=== PATIENT | male | born 1960 | race Caucasian/White ===

== ENCOUNTER 2022-11-19 05:55 | Day surgery (SDC) | payer BC ==
[2022-11-18 16:33] VITALS: BP 139/98
[~2022-11-19] VITALS: Ht 195.6 cm; Wt 127.3 kg
[~2022-11-19 05:55] MED LIST: METOPROLOL SUC100 MG PO
[2022-11-19 06:16] VITALS: BP 142/92
[2022-11-19] MEDS ORDERED: FLUCONAZOLE200 MG PO (06:19)
[2022-11-19] MEDS ORDERED: VITAMIN D310 MC4 PO (06:21)
--- NOTE | 2022-11-19 08:46 | NUR ---
PT ALERT, ORIENTED AND SUPPORTED BY HIS NUHA. SHE WILL RETURN AT NE. OR STAFF IN TO TAKE PT-GAVE ENCOURAGEMENT AND BLESSING. WILL FOLLOW
--- NOTE | 2022-11-19 10:57 | NUR ---
11/19/22 Aiyana7 Monisha Azar 1053- PT ARRIVES TO PACU NONAROUSABLE TO STIMULI WITH AN OPA IN PLACE. RESP EVEN AND UNLABORED. OXYGEN SAT LOW TO MID 90'S ON 10L VIA MASK. PT ALSO NEEDING A JAW THRUST TO MAINTAIN A PATENT AIRWAY. 1056- JAW THRUST STOPPED. OPA ABLE TO MAINTAIN PATENT AIRWAY.
[2022-11-19] MEDS ORDERED: ACETAMINOPHEN500 MG PO (11:22)
[2022-11-19] MEDS ORDERED: IBUPROFEN600 MG PO (11:22)
[2022-11-19] MEDS ORDERED: OXYCODON-ACETA1 EAC2 PO (11:22)
[2022-11-19 11:47] VITALS: BP 143/72
--- NOTE | 2022-11-19 11:50 | NUR ---
PT ARRIVES TO UNIT VIA STRETCHER FROM PACU. REPORT RECIEVED FROM NIKO FOSTER. PT REPORTS PAIN 7/10 AT THIS TIME, JELLO AND CRACKERS GIVEN TO ENSURE PT CAN TOLERATE ORAL MEDICATION. PT REPORTS NO NAUSEA, DIZZINESS, N/T, SOB AT THIS TIME. PT EXPERIENCES INCREASED PAIN W/DEEP INHALATION, PILLOW PROVIDED BY PACU NURSE AND EDUCATED ON SPLINTING. UMBILICUS DRESSING IS C/D/I, LFT INGUINAL DRESSING HAS 2 SMALL SPOTS OF SS DRAINAGE AT THIS TIME. PT IS A&O X4 W/ AT BEDSIDE. VSS, PT ON 2L OF O2 VIA NC, PULSE OX IN PLACE SHOWS O2 OF 94% AT THIS TIME. CALL LIGHT WITHIN REACH, PT TOLERATING ICE WATER W/OUT DIFFICULTY SWALLOWING, NO FURTHER NEEDS AT THIS TIME.
--- NOTE | 2022-11-19 12:17 | NUR ---
PT TOLERATING JELLO AND CRACKERS W/OUT DIFFICULTY AND REPORTS NO NAUSEA. PRN PERCOCET GIVEN D/T PAIN REPORT OF 7/10 AND TOLERABLE LEVEL OF 5/10. PULSE OX IN PLACE, TITRATED DOWN TO 1L OF O2, PULSE OX SHOWS 94% AT THIS TIME. CALL LIGHT WITHIN REACH, NO FURTHER NEEDS AT THIS TIME.
[2022-11-19 12:40] VITALS: BP 130/81
--- NOTE | 2022-11-19 12:40 | NUR ---
IN ROOM FOR CHECK ON PAIN AFTER 1 DOSE OF PRN PAIN MED. PT STATES PAIN IS STILL 7/10 AND FEELS TIGHTNESS/PRESSURE AROUND ABDOMEN THAT FEELS LIKE "I HAVE A TIRE AROUND MY WAIST". PT STATES PAIN REMAINS ON LFT INGUINAL SITE. ASSISTED PT TO SITTING AT EDGE OF BED AND STANDING AT BEDSIDE. PT STATES FEELS BETTER ON INCISION SITE BUT PT FEELS SLIGHTLY UNSTEADY, PT BACK TO LAYING POSITION AT THIS TIME. POST MOVEMENT UMBILICAL DRESSING IS C/D/I, W/MINIMAL BRUISING AT SITE AND INGUINAL SITE HAS X2 SMALL SPOTS OF SS DRAINAGE AT THIS TIME.
--- NOTE | 2022-11-19 13:10 | NUR ---
EMERSON GATES IN ROOM AT THIS TIME FOR PT UPDATE. VERBAL ORDERS FOR BINDER GIVEN AT THIS TIME, NOW IN PLACE ON PT ABDOMEN. EMERSON VISUALIZES DRESSING AND DRAINAGE. PT NOW RESTING IN BED AT THIS TIME, 2ND PRN PAIN MED ADMINISTERED TO TITRATE TO MAX DOSE. CALL LIGHT WITHIN REACH, AT BEDSIDE, NO FURTHER NEEDS AT THIS TIME.
[2022-11-19 14:07] VITALS: BP 135/88
--- NOTE | 2022-11-19 14:15 | NUR ---
IN PT ROOM FOR FOLLOW UP ON PAIN. PT REPORTS PAIN HAS DECREASED TO 1/10 AND PT STATES TOLERABLE IS 5/10. PT STATES MUCH IMPROVED PAIN MANAGEMENT WITH ABDOMINAL BINDER AND TITRATION OF PRN PERCOCET TO MAX DOSE OF 2 PILLS. AT THIS TIME PT STANDS AT BEDSIDE AND REPORTS NO DIZZINESS OR INSTABILITY. STANDBY ASSIST TO RESTROOM WHERE PT HAD 300 ML URINE OUTPUT. PT NOW BACK IN ROOM AND REPORTS NO INCREASE OF PAIN WITH AMBULATION, AND SLIGHT INCREASE IN BLEEDING AT DISTAL END OF INGUINAL INCISIONAL DRESSING. DRESSING REMAINS INTACT. UMBILICAL DRESSING IS C/D/I. ART RN IN ROOM FOR VISUALIZATION OF DRESSING POST AMBULATION WELL.
--- NOTE | 2022-11-19 14:25 | NUR ---
IN PT ROOM FOR DISCHARGE EDUCATION. PT AND STATE VERBAL UNDERSTANDING AND HAVE NO FURTHER QUESTIONS OR NEEDS AT THIS TIME. IV SITE DC'ED AND WNL, CATHETER TIP INTACT. ADDITIONAL GAUZE/OPSITE GIVEN TO PT IN CASE OF NEED FOR ADDITIONAL DRESSING AFTER 48 HOUR PERIOD DRESSING REMOVAL FOR COMFORT. THIS RN ESCORTS PT OFF OF UNIT VIA WC. ALL BELONGINGS IN PT POSSESSION. PT INTO 'S PASSENGER VEHICLE AT THIS TIME. PT AND STATE NO FURTHER NEEDS AT THIS TIME.
--- NOTE | 2022-11-20 12:33 | NUR ---
11/20/22: FOLLOW UP TC PLACED TO PT. PT REPORTS SIGNIFICANT AMOUNT OF UMBILICAL SWELLING AND PT ENCGD TO CONTACT MD EMERSON. NO FURTHER CONCERNS AND OTHERWISE DOING WELL
--- NOTE | 2022-11-20 14:01 | OR ---
[facility] [address], [place] [address] Signed DATE OF OPERATION: 11/19/2022 SURGEON: Liliya Norman MD PREOPERATIVE DIAGNOSES: 1. Symptomatic left inguinal hernia. 2. Large umbilical hernia. POSTOPERATIVE DIAGNOSES: 1. Left inguinal hernia indirect with large bladder fat sliding component. 2. Umbilical hernia fascial defect 6 cm. PROCEDURES: 1. Repair of left inguinal hernia with implantation of Prolene mesh underlay technique. 2. Repair of umbilical hernia 6 cm defect with implantation of mesh underlay technique. ANESTHESIA: General, endotracheal, Liliya Espinoza CRNA and local 20 mL of 0.25% Marcaine with epinephrine. INDICATION: This 62-year-old white man has had a lifelong umbilical hernia which has increased in size and with increasing symptoms of late. The fascial defect is between 4 and 6 cm clinically. There is no evidence of incarceration. He additionally has a left groin bulge with discomfort and finding include that of an inguinal hernia there. Both testicles are normal. He has increasing symptoms of the left groin. He is admitted at this time to undergo repair of the umbilical hernia as well as the left inguinal hernia. He understands the risk of bleeding, infection, recurrence and so on. Understanding all this, he wished to proceed. FINDINGS: Left inguinal hernia had a relatively large indirect sac. On the medial aspect was contiguous fat from likely the bladder which was freed. Ultimately excision and ligation of the sac were accomplished after reduction of a sliding component. The floor was attenuated and implantation of mesh in the properitoneal space in an underlay technique was accomplished as well. As regard to the umbilical hernia, the fascial defect was ultimately found to be 6 cm. There was a distinct 2 cm defect cephalad to this, which was made in continuity with the Electronically Signed By: LILIYA NORMAN MD 11/20/22 1401 PATIENT NAME: LINCOLN SIMS OPERATIVE REPORT DATE OF : 58 REPORT #: [id number] PHYSICIAN: LILIYA NORMAN MD PCP: NO PRIMARY CARE PHYSICIAN REPORT IS CONFIDENTIAL AND NOT TO BE RELEASED WITHOUT AUTHORIZATION [facility] [address], [place] [address] Signed original defect. Repair included implantation of a 6 inch x 6 inch piece of Prolene mesh in an underlay technique in the properitoneal space. The overlying fascia was able to be reapproximated as well. DESCRIPTION OF PROCEDURE: The patient was brought to the operating room, and given a general endotracheal anesthetic. Due to two separate spinal fusion operations, a pillow with apparatus was used to optimize intubation, which was accomplished without problem. He did receive preoperative antibiotic Ancef. Sequential compression device stockings were used and heparin subcutaneously administered. The abdomen and groin area were clipped and prepared with a chlorhexidine solution and draped sterilely. Attention was turned to the left inguinal hernia 1st. An incision was made along the line of skin tension cephalad to the left pubic tubercle and dissection was carried through the subcutaneous fat. The patient is rather a large 6 feet 7 inches and is generally large and somewhat obese. Dissection carried through the subcutaneous tissue ultimately encountering the external oblique. This was incised along its fibers revealing the underlying cord. A bulky hernia was noted, indirect in type. The cord was mobilized from the floor with blunt and electrocautery dissection and encircled with a Nixon drain. The hernia sac was dissected free from the cord. It appeared to have soft tissue within it, which was not fully reducible. The hernia sac was freed completely from the cord structures and opened. Within it was a significant amount of fat on the medial wall consistent with sliding hernia. Initially it was thought to come from the colon, but more likely bladder fat actually. This was freed from the hernia sac as much as possible and invaginated into the abdominal cavity. The hernia sac now well defined was secured with running 2-0 silk suture doubly applied and redundant hernia sac amputated and passed for pathology. Examination of the floor showed attenuated fibers of the fascia of transversalis. Allis clamps were applied to the tendon of the transversus abdominis. The floor was incised with electrocautery and the properitoneal fat bluntly. Good visualization of the inferior epigastric vein and artery was noted. A segment of Prolene mesh was cut to an elliptical configuration and secured in an underlay technique with interrupted 2-0 Prolene sutures. A defect was cut in the graft to accommodate the cord. The tails of the graft were secured laterally but without full encirclement of the cord just to avoid any vascular compromise. Good position of the mesh was noted. The cord was replaced into the canal and external oblique was reapproximated with interrupted 2-0 Vicryl suture. A 10 mL of 0.25% Marcaine had been injected in the floor of the canal prior to closure. Irrigation was undertaken as well. The external oblique was reapproximated with interrupted 2-0 Vicryl suture. Josh Electronically Signed By: LILIYA NORMAN MD 11/20/22 1401 PATIENT NAME: LINCOLN SIMS OPERATIVE REPORT DATE OF : 58 REPORT #: [id number] PHYSICIAN: LILIYA NORMAN MD PCP: NO PRIMARY CARE PHYSICIAN REPORT IS CONFIDENTIAL AND NOT TO BE RELEASED WITHOUT AUTHORIZATION [facility] [address], [place] [address] Signed layer was reapproximated with interrupted 2-0 Vicryl and the skin closed with running subcuticular 3-0 Vicryl. Steri-Strips were applied as was an Acticoat dressing. Attention was then turned towards the umbilical hernia. The defect measured at least 3 fingerbreadths between 4 and 6 cm initially. A curvilinear incision was made to the left of the umbilical fold. Dissection was carried through the dermis with electrocautery and sharp dissection. Ultimately, the overlying skin from the hernia sac was freed with electrocautery revealing the underlying defect which measured at least 4 cm, possibly more. This defect was freed more fully from the hernia sac. The properitoneal fat was identified and dissection was undertaken in the properitoneal space circumferentially for at least 4 cm. Once freed up as far as necessary, laterally, which was more close to 5 or 6 cm, the defect in the hernia sac was reapproximated with running 2-0 Vicryl suture. A 6 inch x 6 inch piece of Prolene mesh was cut to a circular configuration and the remnants used for pledgets. The mesh was secured in the properitoneal space with interrupted 0 Prolene sutures circumferentially applied with Prolene pledgets. The resultant fascial defect was reapproximated with interrupted vertical mattress Prolene with Prolene pledgets as well covering the mesh implantation fully. Josh layer was reapproximated with interrupted 2-0 Vicryl, closing the space completely after application of 10 mL of 0.25% Marcaine with epinephrine. The skin was then closed in a running subcuticular 3-0 Vicryl. Steri-Strips were applied as was an Acticoat dressing. The patient tolerated the procedure well. Blood loss was less than 25 mL in aggregate. He was extubated without problem, taken to the recovery room in good condition. MD CLAYTON Lott/MODL /[id number] Copies: ~ Electronically Signed By: LILIYA NORMAN MD 11/20/22 1401 PATIENT NAME: LINCOLN SMIS OPERATIVE REPORT DATE OF : 58 REPORT #: [id number] PHYSICIAN: LILIYA NORMAN MD PCP: NO PRIMARY CARE PHYSICIAN REPORT IS CONFIDENTIAL AND NOT TO BE RELEASED WITHOUT AUTHORIZATION
--- NOTE | 2022-11-21 23:05 | PATH ---
[facility] [address] [place], [place] [address] Signed SPECIMEN(S): A LEFT INGUINAL HERNIA SAC SPECIMEN SOURCE: A. LEFT INGUINAL HERNIA SAC CLINICAL HISTORY: Umbilical hernia repair FINAL PATHOLOGIC DIAGNOSIS: Hernia sac, left inguinal: - Hernia sac. COMMENT: The specimen consists of benign fibrovascular tissue. There are changes compatible with a hernia sac. MARIBELK:nabil:C2NR MICROSCOPIC EXAMINATION: Histologic sections of all submitted blocks are examined by light microscopy. These findings, together with the gross examination, support the pathologic diagnosis. GROSS DESCRIPTION: The specimen, labeled and designated "Shannan Mercer," and designated on the requisition "left inguinal hernia sac," is received in formalin and consists of a 5.2 x 2.8 x 1.0 cm violaceous membranous tissue fragment with attached yellow-dye adipose tissue. Applications Trainer sections are submitted in (A1). FB (under the direct supervision of a pathologist) The Gross Description was prepared using a voice recognition system. The report was reviewed for accuracy; however, sound-alike word errors, addition and/or deletions may occur. If there is any question about this report, please contact Client Services. PERFORMING LABORATORY: The technical component was performed by [facility], [address] [place] [id number] (CLIA# [id number]). The professional interpretation was performed by [facility], [facility], [address] [place] [address] (CLIA#: [id number]). Diagnostician: Kyler Brice MD PATIENT NAME: LINCOLN MERCER PATHOLOGY DATE OF : 58 REPORT #: [id number] PHYSICIAN: [facility] PCP: NO PRIMARY CARE PHYSICIAN REPORT IS CONFIDENTIAL AND NOT TO BE RELEASED WITHOUT AUTHORIZATION [address] [place], [place] [address] Signed Pathologist Electronically Signed 11/21/2022 Copies: ~ PATIENT NAME: LINCOLN MERCER PATHOLOGY DATE OF : 58 REPORT #: [id number] PHYSICIAN: [facility] PCP: NO PRIMARY CARE PHYSICIAN REPORT IS CONFIDENTIAL AND NOT TO BE RELEASED WITHOUT AUTHORIZATION
== END 2022-11-19 14:55 | disposition home or self-care (01) ==
LOC: DS 05:55
PROVIDERS: ATTEND Surgery
DX: K40.90 Unilateral inguinal hernia, without obstruction or gangrene, not specified as recurrent (principal); K42.9 Umbilical hernia without obstruction or gangrene; I10 Essential (primary) hypertension; M62.522 Muscle wasting and atrophy, not elsewhere classified, left upper arm; Z96.649 Presence of unspecified artificial hip joint; Z79.899 Other long term (current) drug therapy
CPT/HCPCS: 00750; C1781; J0330; J0690; J1100; J1644; J1885; J2250; J2405; J2704; J2765; J3010; J7121

== ENCOUNTER 2023-05-29 11:06 | Day surgery (SDC) | payer BC ==
[~2023-05-29] VITALS: Ht 195.6 cm; Wt 125.0 kg
[~2023-05-29 11:06] MED LIST changes: +ACETAMINOPHEN500 MG PO; +FLUCONAZOLE200 MG PO; +IBUPROFEN600 MG PO; +OXYCODON-ACETA1 EAC2 PO; +VITAMIN D310 MC4 PO
[2023-05-29 11:24] VITALS: BP 135/89
[2023-05-29] MEDS ORDERED: NEURONTIN300 MG PO (11:29)
[2023-05-29] MEDS ORDERED: LISINOPRIL20 MG PO (11:29)
[2023-05-29] MEDS ORDERED: DICLOFENAC POTA50 MG PO (11:30)
[2023-05-29] MEDS ORDERED: ALEVE220 M1 PO (11:30)
--- NOTE | 2023-05-29 12:56 | NUR ---
05/29/23 Isaiah6 Tessie Phillips 1247- PT ARRIVES TO PACU, LEFT LATERAL POSITION. AWAKE AND ANSWERING QUESTIONS, BUT DROWSY. DENIES PAIN OR NAUSEA. ABD ROUND AND FIRM, ENCOURAGED TO PASS. LR INFUSING TO RH IV. O2 AT 2L PER NC. BREATHING EVEN AND NON LABORED. 1250- PT MOVED TO ROOM AIR, WILL CONTINUE TO MONITOR.
[2023-05-29 13:16] VITALS: BP 121/82
--- NOTE | 2023-05-30 11:43 | OR ---
[facility] [address] [place], [place] [address] Signed DATE OF OPERATION: 05/29/2023 SURGEON: Liliya Norman MD PREOPERATIVE DIAGNOSIS: Colon screening. POSTOPERATIVE DIAGNOSES: 1. Sigmoid and left-sided diverticulosis. 2. Internal hemorrhoidal changes. PROCEDURE: Total colonoscopy to cecum. ANESTHESIA: Intravenous sedation; fentanyl 100 mcg and Versed 7 mg. INDICATION: This 63-year-old white man is a patient of Dr. Palacio. He last underwent colonoscopy in 2007 in [place]. He has no symptoms of bleeding, diarrhea or constipation at this time. He is admitted at this time to undergo screening colonoscopy. He understands the risk of bleeding, infection, and perforation. He remains a patient of Dr. Palacio. FINDINGS: The prep was good. Complete colonoscopy was undertaken to the cecum with full intubation of the cecum. There are numerous large and moderate-sized diverticula of the sigmoid and left colon, but no evidence of polyps, colitis, or cancer. Retroflexed view did confirm internal hemorrhoids. DESCRIPTION OF PROCEDURE: The patient was brought to the endoscopy suite and placed in the lateral decubitus position, given intravenous sedation to the point of slurred speech and nystagmus. Digital rectal examination was normal. An Olympus video colonoscope was passed in the rectum and manipulated throughout the colon noting numerous diverticula of the sigmoid and left colon. The scope was ultimately advanced to the cecum after placing the patient in the supine position when abdominal wall stabilization did not allow for full intubation of the cecum. Postural change allowed for complete intubation without problem. Irrigation was undertaken. Good visualization of the cecum and ilium was noted. The scope was then withdrawn and Electronically Signed By: LILIYA NORMAN MD 05/30/23 1143 PATIENT NAME: LINCOLN SIMS OPERATIVE REPORT DATE OF : 58 REPORT #: [id number] PHYSICIAN: LILIYA NORMAN MD PCP: MEREDITH PALACIO MD REPORT IS CONFIDENTIAL AND NOT TO BE RELEASED WITHOUT AUTHORIZATION [facility] [address] [place] [id number] Signed examination throughout showed no sign of abnormality other than diverticula of the left and sigmoid colon as previously noted. Retroflexed view of the rectum confirmed internal hemorrhoidal changes. The scope was straightened, withdrawn and removed. The patient was taken to the recovery room in good condition. CONCLUDING DIAGNOSES: 1. Diverticulosis. 2. Internal hemorrhoids. PLAN: Recommend a fiber supplement such as Citrucel one scoop p.o. daily or a high-fiber diet. Would recommend repeat colonoscopy in 10 years based on current guidelines and the patient's personal profile. He will return to the ongoing care of Dr. Meredith Palacio. MD CLAYTON Lott/EMMA /[id number] cc: Dr. Meredith Palacio Copies: ~ Electronically Signed By: LILIYA NORMAN MD 05/30/23 1143 PATIENT NAME: LINCOLN SIMS OPERATIVE REPORT DATE OF : 58 REPORT #: [id number] PHYSICIAN: LILIYA NORMAN MD PCP: MEREDITH PALACIO MD REPORT IS CONFIDENTIAL AND NOT TO BE RELEASED WITHOUT AUTHORIZATION
== END 2023-05-29 13:33 | disposition home or self-care (01) ==
LOC: OPS 11:06 → DS 11:10 → OPS 12:00 → DS 14:00 → OPS 14:00
PROVIDERS: ATTEND Surgery
PROC: 0DJD8ZZ Inspection of Lower Intestinal Tract, Via Natural or Artificial Opening Endoscopic (ICD-10-PCS; principal; 2023-05-29 12:00)
DX: Z12.11 Encounter for screening for malignant neoplasm of colon (principal); K57.30 Diverticulosis of large intestine without perforation or abscess without bleeding; K64.8 Other hemorrhoids; I10 Essential (primary) hypertension; Z96.649 Presence of unspecified artificial hip joint; Z79.899 Other long term (current) drug therapy
CPT/HCPCS: 99153; G0500; J0690; J2250; J3010; J7121